=== PATIENT | male | born 1960 | race Native Hawaiian/Other Pacific Islander ===

== ENCOUNTER 2016-11-08 19:17 | Emergency (ER) | payer OTHER ==
[~2016-11-08] VITALS: Ht 190.5 cm; Wt 66.7 kg
[2016-11-08 19:51] VITALS: BP 123/78
[2016-11-08 22:19] LABS: BASOPHILS # (AUTO) 0.1 K/uL (0.00-0.22); BASOPHILS % (AUTO) 1.1 % (0.0-2.0); EOSINOPHILS # (AUTO) 0.3 K/uL (0-0.4); EOSINOPHILS % (AUTO) 3.3 % (0.0-4.0); HEMATOCRIT 41.5 % (36-52); HEMOGLOBIN 13.9 g/dL (12.0-18.0); LYMPHOCYTES # (AUTO) 1.9 K/uL (2.0-11.5); MEAN CORPUSCULAR HEMOGLOBIN 30 pg (27-31); MEAN CORPUSCULAR HGB CONC 33 g/dL (33-37); MEAN CORPUSCULAR VOLUME 91 fL (80-94); MONOCYTES # (AUTO) 0.5 K/uL (0.8-1.0); MONOCYTES % (AUTO) 6.7 % (1.7-9.3); NEUTROPHILS # (AUTO) 5.3 K/uL (1.8-7.7); NEUTROPHILS % (AUTO) 64.9 % (42.2-75.2); PLATELET COUNT (AUTO) 232 K/uL (140-450); RED BLOOD CELL COUNT(AUTO) 4.57 MIL/uL (4.20-6.10); RED CELL DISTRIBUTION WIDTH 11.9 % (11.6-13.7); WHITE BLOOD COUNT (AUTO) 8.1 K/uL (4.8-10.8)
[2016-11-08 22:20] LABS: APPEARANCE,URINE SL CLOUDY (CLEAR); BILIRUBIN,URINE NEGATIVE (NEGATIVE); BLOOD, URINE 3+ (NEGATIVE); COLOR,URINE YELLOW (YELLOW); LEUKOCYTE ESTERASE ,URINE 1+ (NEGATIVE); NITRITE, URINE POSITIVE (NEGATIVE); PH,URINE 5.5 (5.0-9.0); PROTEIN,URINE 1+ (NEGATIVE); UGLUCOSE 2+ (NEGATIVE); UROBILINOGEN,URINE 0.2 EU/dL (0.2 - 1)
[2016-11-08 22:37] LABS: ALBUMIN 3.2 g/dL (3.4-5.0); ANION GAP 12.1 (8-16); CALCIUM 8.4 mg/dL (8.5-10.1); CARBON DIOXIDE 26.7 mmol/L (21-32); POTASSIUM 3.8 mmol/L (3.5-5.1); TOTAL BILIRUBIN 0.9 mg/dL (0.0-1.0); TOTAL PROTEIN, SERUM 7.5 g/dL (6.4-8.2)
[2016-11-08 22:45] LABS: BACTERIA,URINE 3+ /HPF (None Seen); RBC,URINE 50-80 /HPF (0-5); WBC,URINE TOO MANY TO COUNT /HPF (0-5)
[2016-11-08 22:46] LABS: SQUAMOUS EPITHELIAL CELL,UR 4-10 (MOD) /LPF (0-3 (FEW))
--- NOTE | 2016-11-09 01:59 | NUR ---
PATIENT TO ER BED 7
--- NOTE | 2016-11-09 02:15 | NUR ---
PT IS 56/M BIB PARTNER TO ED WITH C/O CHEST PAIN X 1 DAY. PT. LIVES IN [place], FEVER X FEW DAYS. TODAY HAVE CHEST PAIN AND BODY ACHES. RADIATE TO BACK. NO MEDICAL HX. DENIES V/D; SKIN IS PINK/WARM/DRY; AAOX4 WITH EVEN AND STEADY GAIT; LUNGS CLEAR BL; HR EVEN AND REGULAR; PT DENIES ANY SOB, OR COUGH AT THIS TIME; PATIENT STATES PAIN OF 7/10 AT THIS TIME; VSS; PATIENT POSITIONED FOR COMFORT; HOB ELEVATED; BEDRAILS UP X2; BED DOWN. ER MD MADE AWARE OF PT STATUS.
--- NOTE | 2016-11-09 02:30 | NUR ---
PATIENT BEING EVALUATED BY DR. PORTER.
[2016-11-09] MEDS ORDERED: HYDROcodone/APAP 10/325 MG 1 TAB TAB PO STA (03:29)
[2016-11-09] MEDS ORDERED: THIAMINE IV ONE (03:30)
[2016-11-09] MEDS ORDERED: LEVOFLOXACIN 500 MG/D5W PREMIX 100 ML IV ONE (03:30)
[2016-11-09] MEDS ORDERED: MULTIVITAMIN IV ONE (03:30)
[2016-11-09] MEDS ORDERED: NACL 0.9% IV ONE (03:30)
[2016-11-09] MEDS ORDERED: MULTIVITAMIN-12 10 ML VIAL IV ONE (04:02)
[2016-11-09] MEDS ORDERED: THIAMINE 200 MG/2 ML VIAL ONE (04:02)
--- NOTE | 2016-11-09 04:15 | NUR ---
PT RESTING IN BED. NO SOB NOTED. PARTNER AT BEDSIDE. WILL CONTINUE TO MONITOR.
[2016-11-09] MEDS ORDERED: NACL 0.9% 1,000 ML IV ONE (04:20)
--- NOTE | 2016-11-09 06:17 | NUR ---
PT APPEARS TO BE RESTING COMFORTABLY IN BED. NO SOB NOTED AT THIS TIME. VITAL SIGNS STABLE. PARTNER DAYO AT BEDSIDE. WILL CONTINUE TO MONITOR.
--- NOTE | 2016-11-09 07:12 | NUR ---
ENDORSED REPORT TO MELBA DURON FOR TRANSFER OF CARE.
--- NOTE | 2016-11-09 07:32 | NUR ---
RECIEVED PATIENT AWAKE/ALERT/ORIENTED. DENIES DISCOMFORT.AWWAITING FOR DISPOSITION
--- NOTE | 2016-11-09 08:56 | NUR ---
PATIENT EATING BREAKFAST
--- NOTE | 2016-11-09 08:57 | NUR ---
STILL AWAITING FOR DISPOSITION
--- NOTE | 2016-11-09 09:06 | NUR ---
DR. LIMA AT BEDSIDE REASSESSING PATIENT.DENIES CHEST DISCOMFORT,NO SOB
[2016-11-09 09:59] VITALS: BP 104/63
--- NOTE | 2016-11-09 09:59 | NUR ---
Patient discharged with v/s stable. Written and verbal after care instructions given and explained. Patient alert, oriented and verbalized understanding of instructions. Ambulatory with steady gait. All questions addressed prior to discharge. ID band removed. Patient advised to follow up with PMD. Rx of KEFLEX,CIPRO,NORCO,MOTRIN given. Patient educated on indication of medication including possible reaction and side effects. Opportunity to ask questions provided and answered.
--- NOTE | 2016-11-11 12:32 | NUR ---
FINAL URINE CULTURE RESULTS RECEIVED. M.D. UPDATED. NO CHANGES INDICATED AT THIS TIME, ALL MEDICATIONS PRESCRIBED REMAIN APPROPRIATE.
== END 2016-11-09 09:59 | disposition home or self-care (01) ==
LOC: MED 19:17
DX: N30.90 Cystitis, unspecified without hematuria (principal); R07.89 Other chest pain
CPT/HCPCS: 36415; 71010; 80053; 81001; 82948; 84484; 85025; 87086; 87186; 93005; 96365; 99285; A9153; J1956; J3411; J7030